=== PATIENT | male | born 1985 | race Hispanic/Latino ===

== ENCOUNTER 2022-02-03 09:40 | Outpatient (CLI) | payer OTHER | END 2022-02-03 09:41 | disposition home or self-care (01) | LOC: TBSIIMAG 09:40 | PROVIDERS: ATTEND Physician Assistant | DX: M54.50 Low back pain, unspecified (principal) | CPT/HCPCS: 72120 ==

== ENCOUNTER 2022-02-24 10:51 | Outpatient (CLI) | payer OTHER | END 2022-02-24 10:52 | disposition home or self-care (01) | LOC: BICCT 10:51 | PROVIDERS: ATTEND Neurological Surgery | DX: M54.50 Low back pain, unspecified (principal) | CPT/HCPCS: 72120; 72131 ==

== ENCOUNTER 2023-02-21 17:00 | Outpatient (CLI) | payer OTHER | END 2023-02-21 17:01 | disposition home or self-care (01) | LOC: SLEEPLAB 17:00 | PROVIDERS: ATTEND Internal Medicine Critical Care Medicine | DX: G47.33 Obstructive sleep apnea (adult) (pediatric) (principal); G47.10 Hypersomnia, unspecified; G47.12 Idiopathic hypersomnia without long sleep time | CPT/HCPCS: 95810 ==